=== PATIENT | male | born 1970 | race Caucasian/White ===

== ENCOUNTER 2018-03-20 12:45 | Emergency (ER) | payer BC ==
[2018-03-20] MEDS ORDERED: Sulfamethoxazole/Trimethoprim 800-160 MG Tab ONE (13:00)
--- NOTE | 2018-03-20 20:33 | ER ---
HISTORY OF PRESENT ILLNESS: The patient is a 47-year-old male who comes in today with a chief complaint of infection in the left thumb. He notes it has been there for a couple of days. He kept thinking it would get better, but it just kept getting worse. ALLERGIES: PENICILLIN. CURRENT MEDICATIONS: None. PHYSICAL EXAMINATION: GENERAL: He is alert, oriented, no apparent distress. VITAL SIGNS: Temperature is 97.1, pulse 75, blood pressure is 149/79, O2 saturation is 99% on room air. HEENT: Unremarkable. LUNGS: Clear. HEART: Regular sinus rhythm. EXTREMITIES: On his left thumb on the ulnar side, the patient has a fairly large paronychia at the base. It is discolored and raised. We can see there is purulent material under it. It is heading actually in a couple of different places. We went ahead and did a digital block with 1% plain lidocaine proximal to the area. After an appropriate time period, the paronychia was incised with #11 blade and a culture of the purulent material obtained. The patient had about 0.5 mL or so of purulent material expressed. There was a 2nd small pocket which was excised just distal to that on the lateral aspect and the patient tolerated it well with no discomfort. ASSESSMENT: Paronychia. PLAN: We went ahead and drained it as noted above. I have put the patient on some Bactrim DS 1 p.o. b.i.d., and we will go ahead and obtain a culture just in case, but we should cover staph and MRSA quite readily with the Bactrim. If it is not getting better, he can contact us or we will contact him if it turns out to be resistant to Bactrim. SUMMER/SHAUNA /[id number]
== END 2018-03-20 13:10 | disposition home or self-care (01) ==
LOC: LB.ED 12:45
DX: L03.012 Cellulitis of left finger (principal)
CPT/HCPCS: 10060; 87070; 87205; 99283; A9270; 87077; 87186